=== PATIENT | female | born 1985 | race Caucasian/White ===

== ENCOUNTER 2019-12-18 11:34 | Outpatient (CLI) | payer OTHER, SELFPAY ==
[2019-12-18 12:32] LABS: Beta HCG Quantitative < 2.39 mIU/ML
== END 2019-12-18 11:35 | disposition home or self-care (01) ==
LOC: ANHLAB 11:36
PROVIDERS: PCP Emergency Medicine; Visit Provider Advanced Practice Midwife
DX: Z30.9 Encounter for contraceptive management, unspecified (principal)
CPT/HCPCS: 36415; 84702